=== PATIENT | female | born 1995 | race American Indian/Alaskan Native ===

== ENCOUNTER 2019-09-27 | Emergency (ER) | payer SELFPAY ==
[2019-09-27 00:04] VITALS: BP 143/86
--- NOTE | 2019-09-27 00:38 | XRay Report ---
CHEST 1 VIEW INDICATION: Chest Pain. COMPARISON: None. FINDINGS: Support devices: None. Heart: Normal. Lungs/Pleura: No acute pulmonary or pleural findings. IMPRESSION: 1. No acute findings. Signer Name: Abelardo Abdullahi MD Signed: 09/27/2019 12:34 AM Workstation Name: [id number]
--- NOTE | 2019-09-27 03:54 | Emergency Department Report ---
ED Chest Pain HPI - General Chief Complaint: Chest Pain Stated Complaint: CHEST PAIN Source: patient Mode of arrival: Ambulatory Limitations: No Limitations - History of Present Illness Initial Comments: 24-year-old -[place] female patient without significant past medical history presents with complaints of one episode of chest pain x today. Patient states she was sitting and watching television with pain started suddenly in her right chest area and then moved to the left chest. Patient states the pain lasted for about 10 minutes and she describes it as a stabbing type pain. She denies any current chest pain. She denies any shortness of breath, leg pain/swelling, oral hormones, history of DVT/PE, recent long travel, hemoptysis, or recent surgeries. [place] also denies any congenital heart abnormalities, recent heavy lifting, or chest trauma. Severity scale (0 -10): 3 - Related Data Allergies Allergy/AdvReac Type Severity Reaction Status Date / Time No Known Allergies Allergy Verified 09/27/19 00:02 Heart Score - HEART Score History: Slightly suspicious EKG: Normal Age: < 45 Risk factors: 1-2 risk factors (pt refused bloodwork for troponin-unable to accurately calculate heart score) Troponin: < normal limit HEART Score: 1 - Critical Actions Critical Actions: 0-3 pts:0.9-1.7%risk of adverse cardiac event.Candidate for discharge ED Review of Systems ROS: Stated complaint: CHEST PAIN Other details as noted in HPI Comment: All other systems reviewed and negative Cardiovascular: chest pain. denies: palpitations ED Past Medical Hx - Past Medical History Previous Medical History?: Yes Additional medical history: Genital Herpes - Surgical History Past Surgical History?: Yes Additional Surgical History: Hernia Repair, Left hand cyst - Social History Smoking Status: Never Smoker Substance Use Type: None ED Physical Exam - General Limitations: No Limitations General appearance: alert, in no apparent distress - Head Head exam: Present: atraumatic, normocephalic - Eye Eye exam: Present: normal appearance - ENT ENT exam: Present: mucous membranes moist - Neck Neck exam: Present: normal inspection - Respiratory Respiratory exam: Present: normal lung sounds bilaterally. Absent: respiratory distress, wheezes, rales, rhonchi, stridor, chest wall tenderness - Cardiovascular Cardiovascular Exam: Present: regular rate, normal rhythm. Absent: systolic murmur, diastolic murmur, rubs, gallop - GI/Abdominal GI/Abdominal exam: Present: soft, normal bowel sounds. Absent: distended, tenderness, guarding, rebound, rigid - Extremities Exam Extremities exam: Present: normal inspection, full ROM. Absent: calf tenderness (no swelling noted) - Back Exam Back exam: Present: normal inspection - Neurological Exam Neurological exam: Present: alert, oriented X3 - Psychiatric Psychiatric exam: Present: normal affect, normal mood - Skin Skin exam: Present: warm, dry, intact, normal color. Absent: rash ED Course Vital Signs 09/27/19 00:03 Temperature 98.0 F Pulse Rate 77 Respiratory 18 Rate Blood Pressure 143/86 O2 Sat by Pulse 99 Oximetry ED Medical Decision Making - EKG Data EKG shows normal: sinus rhythm Rate: normal - Radiology Data Radiology results: report reviewed CHEST 1 VIEW INDICATION: Chest Pain. COMPARISON: None. FINDINGS: Support devices: None. Heart: Normal. Lungs/Pleura: No acute pulmonary or pleural findings. IMPRESSION: 1. No acute findings. - Medical Decision Making 24-year-old female patient presents with sudden onset of chest pain. Patient states the pain lasted about 10 minutes and denies any current chest pain. She denies any red flag symptoms or history. Exam is benign. EKG is normal. Chest x-ray is negative for abnormalities. Vitals are normal. Patient declines blood work stating she does not wish to wait for the results. Patient denies any family history of heart disease or previous heart history. She was stable for discharge home and follow-up with cardiology area discussed strict return precautions in detail with patient verbalizes understanding. Critical care attestation.: If time is entered above; I have spent that time in minutes in the direct care of this critically ill patient, excluding procedure time. ED Disposition Clinical Impression: Other chest pain Disposition: DC-01 TO HOME OR SELFCARE Is pt being admited?: No Condition: Stable Instructions: Chest Pain (ED) Referrals: BERNABE WALTON MD [Staff Physician] - 3-5 Days SUZANNA WESTBROOK MD [Staff Physician] - 3-5 Days
== END 2019-09-27 04:15 | disposition home or self-care (01) ==
LOC: ED
DX: R07.89 Other chest pain (principal); Z79.899 Other long term (current) drug therapy; Z98.890 Other specified postprocedural states
CPT/HCPCS: 71045; 93005; 93010